=== PATIENT | male | born 1980 | race Caucasian/White ===

== ENCOUNTER 2020-12-11 18:07 | Emergency (ER) | payer OTHER, MEDICAID, SELFPAY ==
[2020-12-11 18:18] VITALS: BP 126/68; PULSE 70; RESP 18; TEMP 36.7; O2SAT 98; BMI 24.4
--- NOTE | 2020-12-11 18:25 | DI.RAD.S_ITS ---
PROCEDURE: XR CHEST 2V INDICATIONS: blood in sputum x 3 months. TECHNIQUE: 2 views of the chest were acquired. COMPARISON: None. FINDINGS: Surgical changes and devices: None. Lungs and pleura: Lungs are clear. No pleural effusions or pneumothorax. Mediastinum: Mediastinal contours are normal. Heart size is normal. Bones and chest wall: No suspicious bony abnormalities. Soft tissues appear unremarkable. IMPRESSION: Normal chest x-ray Approved by: Sarbjit Castro M.D. on 12/11/2020 at 18:17
== END 2020-12-11 19:28 | disposition left against medical advice (07) ==
PROVIDERS: Emergency Provider Emergency Medicine
DX: R07.9 Chest pain, unspecified (principal); R04.2 Hemoptysis
CPT/HCPCS: 71046; 99283

== ENCOUNTER 2021-05-11 09:39 | Emergency (ER) | payer OTHER, MEDICAID, SELFPAY ==
--- NOTE | 2021-05-11 09:47 | ED_ITS ---
HPI - Extremity Injury (Upper) General Chief Complaint: Extremity Injury, Upper Stated Complaint: left shoulder on fire Time Seen by Provider: 05/11/21 09:47 History of Present Illness HPI narrative: 40-year-old male former smoker with noncontributory medical history presents for evaluation of left shoulder pain in the absence of an obvious injury for many months. He states it hurts significantly with any range of motion and improves with rest. It does not seem to hurt as bad if somebody else moves his arm or if he uses his opposite arm to lift his left arm. He denies numbness, tingling or weakness. He denies a specific injury or obvious overuse. He has not taken anything to help with the pain. He is otherwise well and free of complaint Related Data Previous Rx's Medication Instructions Recorded hydrocodone 5 mg-acetaminophen 325 1 tab PO Q4-6H PRN #10 tab 05/11/21 mg tablet ketorolac 10 mg tablet 10 mg PO Q6H PRN #14 tab 05/11/21 Allergies Allergy/AdvReac Type Severity Reaction Status Date / Time No Known Drug Allergies Allergy Verified 12/11/20 18:25 Review of Systems Review of Systems Narrative: GENERAL: Denies chills, fatigue, malaise, fever, sweats. HEENT: Denies sinus pain, ear pain, sore throat, difficulty swallowing, dizziness. RESPIRATORY: Denies dyspnea, cough, wheezing, hemoptysis, sputum. CARDIOVASCULAR: Denies chest pain, palpitations, orthopnea, edema, GASTROINTESTINAL: Denies nausea, vomiting, abdominal pain, diarrhea, constipation, melena. : Denies dysuria, frequency, incontinence, hematuria, urinary retention. MUSCULOSKELETAL: See HPI SKIN: Denies rash, skin lesions, or other NEUROLOGIC: Denies weakness, headache, numbness, change in speech, confusion, seizures, incoordination. PSYCHIATRIC: No concerning psychosocial issues. 12 point review of systems is negative except for those stated above Patient History Social History Smoking Status: Former smoker Smoking Status: Former smoker alcohol intake frequency: a few times a month Substance Use Type: marijuana Exam Narrative Exam Narrative: GENERAL: [40] year old patient appears stated age. Well-developed patient, in mild distress. HEAD: Atraumatic. Normocephalic. EYES: Pupils equal round and reactive. Extraocular motions intact. No scleral icterus. No injection or drainage. ENT: Nose without bleeding, purulent drainage. Throat without erythema, tonsillar hypertrophy or exudate. Airway patent. NECK: Trachea midline. Non tender. No pain with axial load CARDIOVASCULAR: Regular rate and rhythm without murmurs, gallops, or rubs. RESPIRATORY: Clear to auscultation. Breath sounds equal bilaterally. No wheezes, rales, or rhonchi. GASTROINTESTINAL: Abdomen soft, non-tender, nondistended. EXTREMITIES: Significant pain and left posterior shoulder with active range of motion, greatly improved with passive range of motion. Closed, isolated and neurovascularly intact, no obvious deformity, effusion, erythema or warmth BACK: Nontender without deformity or crepitance. No flank tenderness. NEURO: AOx3. SKIN: No rash or erythema of visible areas Initial Vital Signs Initial Vital Signs: Vital Signs Temperature 98.3 F 05/11/21 09:48 Pulse Rate 76 05/11/21 09:48 Respiratory Rate 18 05/11/21 09:48 Blood Pressure 131/88 05/11/21 09:48 Pulse Oximetry 100 05/11/21 09:48 Procedures Orthopedic Splinting/Casting Injury #1: Upper Extremity Injury Location: shoulder Upper Extremity Immobilizer: sling/shoulder immobilizer Post splinting neuro exam: intact Post splinting vascular exam: intact Placed by: Nursing Course Vital Signs Vital signs: Vital Signs - 8 hr 05/11/21 09:48 Temperature 98.3 F Pulse Rate 76 Respiratory Rate 18 Blood Pressure 131/88 Pulse Oximetry 100 Discharge Plan Departure Patient Disposition: Home Clinical Impression: Left shoulder strain Instructions: DI for Shoulder Sprain Activity Restrictions/Additional Instructions: *You have been diagnosed with [acute on chronic left shoulder injury *What to do: *Please continue to take your regular medications as directed. [x ] New medication prescriptions sent to your pharmacy: [[facility] ] [ ] New medication written as a paper prescription [ ] No new medications given *Please follow up with your primary care provider in 2-3 days, call for an appointment. Let them know you were seen in the Emergency Department and that we ask that you be seen in follow up. We will electronically transmit a record of today's note if your PCP is in our system *If you do not have a primary care provider please contact the [facility] Resource line at [phone]. They will ask some questions about your medical history and help get you set up with a doctor in the community. *Return to Emergency Department if you should have any new, worsening or concerning symptoms, such as [fever greater than 101 F, shaking chills, worsening pain, persistent vomiting or other bothersome symptoms] Prescriptions: New hydrocodone-acetaminophen 5-325 mg tablet 1 tab PO Q4-6H PRN (Reason: pain) Qty: 10 0RF ketorolac 10 mg tablet 10 mg PO Q6H PRN (Reason: pain) Qty: 14 0RF Referrals: Juan Crump MD [Physician] -
[2021-05-11 09:48] VITALS: BP 131/88; PULSE 76; RESP 18; TEMP 36.8; O2SAT 100; BMI 24.2
[2021-05-11 10:48] VITALS: BP 131/77; PULSE 80; RESP 16; O2SAT 99
== END 2021-05-11 10:50 | disposition home or self-care (01) ==
PROVIDERS: Emergency Provider Emergency Medicine
DX: S46.912A Strain of unspecified muscle, fascia and tendon at shoulder and upper arm level, left arm, initial encounter (principal); X58.XXXA Exposure to other specified factors, initial encounter
CPT/HCPCS: 99282